=== PATIENT | male | born 1975 | race Caucasian/White ===

== ENCOUNTER 2025-06-01 02:22 | Emergency (ER) | payer SELFPAY ==
[~2025-06-01] VITALS: Ht 160 cm; Wt 57.7 kg
[2025-06-01 05:02] VITALS: TEMP 97.5
[2025-06-01] MEDS ORDERED: CYCL-707 PO (06:21)
[2025-06-01] MEDS ORDERED: KETO-204 PO (06:21)
[2025-06-01] MEDS: KETOROLAC 30 MG/ML 1 ML VIAL IM ONE (06:41)
[2025-06-01] MEDS: ACETAMINOPHEN 325 MG TAB PO ONE (06:42)
[2025-06-01 07:05] VITALS: BP 180/90; O2SAT 98
== END 2025-06-01 07:07 | disposition home or self-care (01) ==
LOC: M ED 02:22
DX: M54.6 Pain in thoracic spine (principal); F17.210 Nicotine dependence, cigarettes, uncomplicated; Z79.2 Long term (current) use of antibiotics; Z79.899 Other long term (current) drug therapy
CPT/HCPCS: 96372; 99283; J1885